=== PATIENT | female | born 1950 | race Hispanic/Latino ===

== ENCOUNTER 2018-10-28 11:41 | Emergency (ER) | payer MEDICARE ==
--- NOTE | 2018-10-28 12:11 | Emergency Department Report ---
HPI - General Chief Complaint: Fall Time Seen by Provider: 10/28/18 11:51 - HPI HPI: 68-year-old female presents to the emergency department by EMS from her personal intermediate, [facility], with the complaints of multiple and/or recurrent falls. The patient herself allegedly has a history of dementia but is a poor historian. She has some bruising around her left eye that does not appear to be acute. The patient is a poor historian. She is unable to tell me what is hurting her or might be injured. There is a sheet of paper from the [facility] home and from EMS stating that the patient had a fall without loss of consciousness. That she fell and hit her face on the ground and had some bleeding from the nose. There is a medical history listing of dementia. I spoke with one of the employees from the [facility] residence. He says that the patient is usually nonambulatory but they assist with standing, transferring and using the bathroom. She has had multiple falls prior to today. He confirms that she fell and hit her face on the ground, without loss of consciousness, and had bleeding from the nose. ED Past Medical Hx - Past Medical History Previous Medical History?: Yes Hx Dementia: Yes - Social History Smoking Status: Unknown if ever smoked - Medications Home Medications: Home Medications Medication Instructions Recorded Confirmed Last Taken Type Ciprofloxacin HCl [Ciprofloxacin 500 mg PO Q12HR #14 tab 10/28/18 Unknown Rx TAB] ED Review of Systems ROS: Stated complaint: FALL Other details as noted in HPI Physical Exam - Physical Exam Vital Signs: Vital Signs 10/28/18 10/28/18 11:54 12:02 Temperature 98.6 F Pulse Rate 70 69 Respiratory 12 18 Rate Blood Pressure 155/95 Blood Pressure 171/93 [Left] O2 Sat by Pulse 94 97 Oximetry Physical Exam: GENERAL: The patient is well-developed well-nourished. HENT: Normocephalic. Atraumatic. Patient has moist mucous membranes. EYES: Extraocular motions are intact. NECK: Supple. Trachea is midline. CHEST/LUNGS: Clear to auscultation. There is no respiratory distress noted. HEART/CARDIOVASCULAR: Regular. There is no tachycardia. There is no murmur. ABDOMEN: Abdomen is soft, nontender. Patient has normal bowel sounds. There is no abdominal distention. SKIN: Skin is warm and dry. Left periorbital ecchymosis. There is some swelling, ecchymosis and a abrasion to the nasal bridge. NEURO: The patient is awake. She has some confusion consistent with her dem entia. Sleepy but arousable. The patient has normal speech. MUSCULOSKELETAL: There is no tenderness or deformity. There is no evidence of acute injury. ED Course Vital Signs 10/28/18 10/28/18 11:54 12:02 Temperature 98.6 F Pulse Rate 70 69 Respiratory 12 18 Rate Blood Pressure 155/95 Blood Pressure 171/93 [Left] O2 Sat by Pulse 94 97 Oximetry ED Medical Decision Making - Lab Data Result diagrams: 10/28/18 Unknown 10/28/18 Unknown - EKG Data -: EKG Interpreted by Nm EKG shows normal: sinus rhythm (PVCs), axis, intervals, QRS complexes, ST-T waves Rate: normal - EKG Data When compared to previous EKG there are: previous EKG unavailable Interpretation: normal EKG (with PVCs) - Radiology Data Radiology results: report reviewed CT BRAIN: 10/28/2018 INDICATION / CLINICAL INFORMATION: MAIN: AMS Weakness. COMPARISON: None available. FINDINGS: BRAIN/INTRACRANIAL STRUCTURES: Unenhanced CT images of the brain demonstrate no evidence of acute intracranial abnormality. Ventricles and sulci are normal in size and shape. There is no evidence of ischemic injury, hemorrhage, or mass. There are no abnormal extra-axial fluid collections. EXTRACRANIAL STRUCTURES: Unremarkable. IMPRESSION: Negative unenhanced CT of the brain. CT CERVICAL SPINE: 10/28/2018 INDICATION / CLINICAL INFORMATION: fall. Trauma COMPARISON: None available. FINDINGS: CT images of the cervical spine were obtained. Images are evaluated in the axial, coronal, and sagittal planes. There is no evidence of acute osseous injury. Vertebral body alignment is well preserved. Some degenerative facet changes are present bilaterally at all levels. Slight degenerative anterolisthesis is present at the C7-T1 level. The bones are diffusely osteopenic. CRANIOCERVICAL JUNCTION: Unremarkable. PARASPINAL STRUCTURES: Unremarkable. IMPRESSION: No acute abnormality. FACIAL CT 10/28/2018 HISTORY: Trauma FINDINGS: CT images of the facial bones were obtained. Images are evaluated in the axial, coronal, and sagittal planes. There are comminuted nasal bone fractures present, with rightward deviation of the upper portion of the nose associated with these fractures. Facial structures are otherwise intact. Paranasal sinuses are clear. Orbital structures are unremarkable. IMPRESSION: Nasal bone fractures with rightward deviation. - Medical Decision Making This patient was sent in by her personal intermediate after she had a fall and hit her face and had bleeding from her nose. On examination the patient has some left periorbital ecchymosis as well as some ecchymosis and swelling of the nasal bridge. The patient has a history of dementia and does display some confusion. However, the personal intermediate and the patient's were eventually at bedside and say that she is at her baseline. We tried to obtain a CT scan of th e head, face and cervical spine with the patient had some agitation. Prior to anybody being at bedside, the patient was given a dose of Ativan. The patient's later came bedside and says that she is allergic to Ativan. However the patient has remained at the same mental status and there has been no signs of any allergic reaction since giving this medication. However the allergy has been noted and no further doses will be given. After the patient received the medication we were able to obtain the CT scans. CT scan of the head and cervical spine were negative. CT scan of the face shows a comminuted nasal bone fracture. Patient's labs showed some hypokalemia and a urinary tract i nfection. The patient was given both oral and IV potassium and she should be close to 3.4 3.5 at this time. She was given a dose of Rocephin for her urinary tract infection. Her vital signs were stable throughout her ED course. Patient is nonambulatory at baseline and will have the personal intermediate for assistance with standing, transferring, and ADLs. She has been given a referral for a plastic surgeon to follow-up regarding the nasal bone fracture. The discharge instructions also include instructions to follow-up with the primary care physician. They have been instructed to return the patient the emergency Department with any worsening of her symptoms or with any acute distress. - Differential Diagnosis SAH, nasal bone fracture, facial contusion, dementia Critical Care Time: No Critical care attestation.: If time is entered above; I have spent that time in minutes in the direct care of this critically ill patient, excluding procedure time. ED Disposition Clinical Impression: Hypokalemia UTI (urinary tract infection) Qualifiers: Urinary tract infection type: acute cystitis Hematuria presence: without hematuria Qualified Code(s): N30.00 - Acute cystitis without hematuria Nasal bone fracture Qualifiers: Encounter type: initial encounter Fracture type: closed Qualified Code(s): S02.2XXA - Fracture of nasal bones, initial encounter for closed fracture Disposition: TO HOME OR SELFCARE Is pt being admited?: No Condition: Stable Instructions: Nasal Fracture (ED), Urinary Tract Infection in Women (ED), Hypokalemia (ED) Additional Instructions: Please follow-up with your primary care physician in the next few days. I'm giving you a referral for a local plastic surgeon, Dr. Vick, to follow-up regarding your nasal bone fracture. Take the antibiotics as prescribed for your urinary tract infection. Return to the emergency Department with any worsening of your symptoms or any acute distress. Prescriptions: Ciprofloxacin HCl [Ciprofloxacin TAB] 500 mg PO Q12HR #14 tab Referrals: ESTELITA LUCIA [Other] - 2-3 Days WORK,MAXWELL Scott JR, MD [Staff Physician] - 3-5 Days Time of Disposition: 17:28
[2018-10-28 12:49] LABS: Basophils % (Auto) 0.3 % (0.0-1.8); Eosinophils # (Auto) 0.1 K/mm3 (0.0-0.4); Eosinophils % (Auto) 1.1 % (0.0-4.3); Hematocrit 43.2 % (30.3-42.9); Hemoglobin 14.4 gm/dl (10.1-14.3); Lymphocytes # (Auto) 1.6 K/mm3 (1.2-5.4); Lymphocytes % (Auto) 25.8 % (13.4-35.0); Mean Corpuscular HGB Conc 33 % (30-34); Mean Corpuscular Volume 95 fl (79-97); Monocytes # (Auto) 0.2 K/mm3 (0.0-0.8); Monocytes % (Auto) 3.7 % (0.0-7.3); Platelet Count 285 K/mm3 (140-440); Red Blood Count 4.54 M/mm3 (3.65-5.03); Red Cell Distribution Width 15.3 % (13.2-15.2)
[2018-10-28 12:55] LABS: Bacteria,Urine 3+ /HPF (Negative); Bilirubin,Urine NEG (Negative); Blood,Urine SM (Negative); Color,Urine Amber (Yellow); Mucus,Urine 3+ /HPF
[2018-10-28 12:59] LABS: WBC,Urine > 182.0 /HPF (0.0-6.0)
[2018-10-28 13:02] LABS: INR 1.03 (0.87-1.13); Partial Thromboplastin Time 26.8 Sec. (24.2-36.6)
[2018-10-28] MEDS ORDERED: ROCEPHIN/NS 1 GM/50 ML 1 GM/50 ML BAG IV ONE (13:04)
[2018-10-28 13:11] LABS: Amphetamine Screen,Urine PRESUMPTIVE NEGATIVE; Benzodiazepines Screen,Urine PRESUMPTIVE NEGATIVE; Cannabinoid Screen,Urine PRESUMPTIVE NEGATIVE; Cocaine Screen,Urine PRESUMPTIVE NEGATIVE; Methadone Screen,Urine PRESUMPTIVE NEGATIVE; Opiate Screen,Urine PRESUMPTIVE NEGATIVE
[2018-10-28] MEDS ORDERED: ATIVAN IV ONE (13:14)
--- NOTE | 2018-10-28 13:14 | XRay Report ---
PELVIS 1 VIEW(S) INDICATION / CLINICAL INFORMATION: fall COMPARISON: None available. FINDINGS: BONES / JOINT(S): No acute fracture or subluxation. Mild bilateral hip and sacroiliac joint degenerat dion arthrosis. SOFT TISSUES: Mild to moderate atherosclerotic arterial calcifications. ADDITIONAL FINDINGS: None. Signer Name: Pamela Diop MD Signed: 10/28/2018 1:10 PM Workstation Name: [id number]
--- NOTE | 2018-10-28 13:15 | XRay Report ---
CHEST 1 VIEW 10/28/2018 12:20 PM INDICATION / CLINICAL INFORMATION: fall. COMPARISON: None available. FINDINGS: SUPPORT DEVICES: None. HEART / MEDIASTINUM: Heart is upper normal size for AP portable technique. LUNGS / PLEURA: Mild elevation of the left hemidiaphragm. No acute airspace disease. No pneumothorax. ADDITIONAL FINDINGS: No acute skeletal abnormality noted. Posterior mid thoracic fusion hardware. IMPRESSION: 1. No acute findings. Signer Name: Pamela Diop MD Signed: 10/28/2018 1:11 PM Workstation Name: [id number]
[2018-10-28 13:18] LABS: BUN/Creatinine Ratio 10; Blood Urea Nitrogen 6 mg/dL (7-17); Calcium 8.3 mg/dL (8.4-10.2)
[2018-10-28 13:19] LABS: Alanine Aminotransferase 17 units/L (7-56); Albumin 3.5 g/dL (3.9-5); Hemolysis Index 4
[2018-10-28] MEDS ORDERED: K-DUR PO ONE (13:58)
[2018-10-28] MEDS ORDERED: NACL 0.9% 1000 ML 1,000 ML ONE (16:08)
[2018-10-28] MEDS: KCL 10MEQ/100ML 10 MEQ/100 ML BAG IV SCH ×2 (16:15→17:37)
--- NOTE | 2018-10-28 16:31 | Cat Scan Report ---
CT BRAIN: 10/28/2018 INDICATION / CLINICAL INFORMATION: fall. COMPARISON: None available. FINDINGS: BRAIN/INTRACRANIAL STRUCTURES: Unenhanced CT images of the brain demonstrate no evidence of acute int racranial abnormality. Ventricles and sulci are prominent in size, consistent with age-related atrophic change. There is no evidence of hemorrhage or mass. There are no abnormal extra-axial fluid collections. Atherosclerotic vascular calcifications are present in the distal internal carotid arteries and verte bral arteries. EXTRACRANIAL STRUCTURES: There is evidence of nasal bone fractures. Facial CT is reported separately. . IMPRESSION: No acute intracranial abnormality. All CT scans at this location are performed using dose reduction to ALARA by means of automated expos ure control. Signer Name: Isai Romero MD Signed: 10/28/2018 4:27 PM Workstation Name: [email or web address]
--- NOTE | 2018-10-28 16:34 | Cat Scan Report ---
FACIAL CT 10/28/2018 HISTORY: Trauma FINDINGS: CT images of the facial bones were obtained. Images are evaluated in the axial, coronal, an d sagittal planes. There are comminuted nasal bone fractures present, with rightward deviation of the upper portion of t he nose associated with these fractures. Facial structures are otherwise intact. Paranasal sinuses are clear. Orbital structures are unremarkable. IMPRESSION: Nasal bone fractures with rightward deviation. All CT scans at this location are performed using dose reduction to ALARA by means of automated expos ure control. Signer Name: Isai Romero MD Signed: 10/28/2018 4:29 PM Workstation Name: [id number]
--- NOTE | 2018-10-28 16:35 | Cat Scan Report ---
CT CERVICAL SPINE: 10/28/2018 INDICATION / CLINICAL INFORMATION: fall. Trauma COMPARISON: None available. FINDINGS: CT images of the cervical spine were obtained. Images are evaluated in the axial, coronal, and sagit bhumika planes. There is no evidence of acute osseous injury. Vertebral body alignment is well preserved. Some degenerative facet changes are present bilaterally at all levels. Slight degenerative anterolist hesis is present at the C7-T1 level. The bones are diffusely osteopenic. CRANIOCERVICAL JUNCTION: Unremarkable. PARASPINAL STRUCTURES: Unremarkable. IMPRESSION: No acute abnormality. All CT scans at this location are performed using dose reduction to ALARA by means of automated expos ure control. Signer Name: Isai Romero MD Signed: 10/28/2018 4:31 PM Workstation Name: [id number]
[2018-10-28] MEDS ORDERED: NACL 0.9% 250ML 250 ML ONE (18:19)
[2018-10-28 19:53] VITALS: BP 167/66
== END 2018-10-28 19:52 | disposition home or self-care (01) ==
LOC: ED 11:41
DX: S02.2XXA Fracture of nasal bones, initial encounter for closed fracture (principal); E87.6 Hypokalemia; N39.0 Urinary tract infection, site not specified; F03.90 Unspecified dementia, unspecified severity, without behavioral disturbance, psychotic disturbance, mood disturbance, and anxiety; Z79.899 Other long term (current) drug therapy; W18.30XA Fall on same level, unspecified, initial encounter; Y93.89 Activity, other specified; Y92.098 Other place in other non-institutional residence as the place of occurrence of the external cause; Y99.8 Other external cause status
CPT/HCPCS: 36415; 70450; 70486; 71045; 72125; 72170; 80053; 80307; 81001; 82550; 84484; 85025; 85610; 85730; 93005; 93010; 96365; 96366; 96367; 96375; 99285; J0696; J2060; J3480; J7030; J7050; 80320; G0480